=== PATIENT | female | born 1985 | race Caucasian/White ===

== ENCOUNTER 2016-12-17 15:57 | Emergency (ER) | payer BC, MEDICAID ==
[~2016-12-17] VITALS: Ht 165.1 cm; Wt 83.5 kg
[~2016-12-17 15:57] MED LIST: HYDR-3584 PO; L-NO1TBD3 PO; LAMO100T PO; NAPR500T3 PO; OMEP40CA36 PO
--- OUTSIDE RECORDS SUMMARY | 2016-12-17 16:04 | XMS REPORT | Continuity of Care Document ---
Author Author [facility] Organization [facility] Address Unknown Phone Unavailable Care Team Providers Care Corrugated Sheet Material Sheeter Name Role Phone Unknown, Unknown PCP Unavailable Source Comments Some departments are not documenting in the electronic medical record. If you do not see the information that you expected, contact Release of Information in the Health Information Management department at [phone] for further assistance in locating additional records.[facility] Active Allergies and Adverse Reactions Not on File Current Medications Not on file Active Problems Not on file Most Recent Encounters Date Type Specialty Providers Description 10/09/2016 [facility] Parker Cerna MD Encounter Social History Tobacco Use Types Packs/Day Years Used Date Never Assessed Last Filed Vital Signs Vital Sign Reading Time Taken Blood Pressure - - Pulse - - Temperature - - Respiratory Rate - - Height 1.676 m (5' 6") 04/08/2016 2:15 PM CDT Weight 83.915 kg (185 lb) 04/08/2016 2:15 PM CDT Body Mass Index 29.87 04/08/2016 2:15 PM CDT Oxygen Saturation - - Plan of Care Health Maintenance Due Date Last Done Comments Physical (Comprehensive) 1994 Exam Pertussis Vaccine 1998 Tetanus Vaccine 2004 Cervical Cancer Screening 2008 Influenza Vaccine 06/12/2016 Results from Last 3 Months Not on file
[2016-12-17] MEDS ORDERED: BUSP10TA95 (16:35)
--- NOTE | 2016-12-17 16:57 | ED EENT ---
History of Present Illness General Chief Complaint: General Problems/Pain Stated Complaint: FACIAL SWELLING Nursing Triage Note: AMB TO ED WITH SISTER. PATIENT SPECIAL NEEDS CHILD. REPORTS SUN STARTED C/O PAIN IN HER NECK AND JAW WITH SWELLING. SAW DR ZUNIGA IN OFFICE YESTERDAY WAS TOLD IT WAS VIRUS, AND TO COME TO ER IF ANY CONCERNS . HERE BECAUSE CON'T HAVE NECK PAIN. ALSO REPORTS SISTER HAS THE SAME THING. Source: patient, family Exam Limitations: no limitations History of Present Illness Time seen by provider: 16:57 Initial Comments 31-year-old female patient presents to the emergency department with concerns of having mumps. Patient is employed at [employer]. Patient states Thursday she started to have pain in the left parotid region with swelling yesterday. Swelling worse today and now involves the rt parotid gland. Reports mild headache, body aches, and low grade fever. Reports her sister has similar symptoms. Patient states her and because of her sisters were vaccinated. Also states the 2 older children of her sister's are vaccinated and a 10 month old that is not vaccinated. Timing/Duration: gradual Location: facial Prearrival Treatment: over the counter meds (last dose of ibuprofen was yesterday) Modifying Factors: Worse With Other (worse with palpation) Allergies and Home Medications Allergies Coded Allergies: NKANo Known Allergies (Verified Allergy, Unknown, 01/16/06) Home Medications Buspirone HCl 10 Mg Tablet #60 (Reported) Lamotrigine 100 Mg Tablet #60 100 MG PO BID (Reported) Naproxen 500 Mg Tablet #60 500 MG PO BID PRN PRN PAIN (Reported) Omeprazole 40 Mg Capsule. #30 40 MG PO DAILY (Reported) Ondansetron 8 Mg Tab.rapdis #10 8 MG PO Q6H PRN PRN NAUSEA Prescribed by: ANDRÉS RODRIGEZ on 12/17/161953 Tramadol HCl 50 Mg Tablet #20 50 MG PO Q4H PRN PRN PAIN Prescribed by: ANDRÉS RODRIGEZ on 12/17/162022 y-Yewbwmu-Esa Estr/Ethin Estra 1 Each Tbdspk.3mo #91 1 TAB PO DAILY (Reported) Review of Systems Constitutional: see HPI chills fever malaise Eyes: No Symptoms Reported Ears: Denies Dizziness, Pain (left ear pain)Denies Tinnitus, Denies Other ( denies discharge.) Nose: denies congestion, denies pain Mouth: see HPI pain (left jaw greater than right jaw) swelling (swelling of the bilateral parotid.) Throat: see HPI pain swellingdenies neck stiffness, denies hoarse, denies aphonia, denies muffled, denies painful swallowing, denies difficulty with fluids Respiratory: no symptoms reported Cardiovascular: no symptoms reported Gastrointestinal: no symptoms reported Musculoskeletal: no symptoms reported Skin: no symptoms reported Neurological: HeadacheDenies Numbness, Denies Paresthesia, Denies Tingling, Denies Weakness Immunological/Allergic: no symptoms reported All Other Systems Reviewed Negative Unless Noted: Yes (Negative excepted noted.) Past Anppiwn-Llkzag-Yjsuwl Hx Patient Social History Alcohol Use: Denies Use Recreational Drug Use: No Smoking Status: Never a Smoker Recent Foreign Travel: No Contact w/Someone Who Travel: No Recent Infectious Disease Expo: No Recent Hopitalizations: No Immunizations Up To Date Date of Influenza Vaccine: Sep 12, 2016 Seasonal Allergies Seasonal Allergies: Yes Surgeries HX Surgeries: Yes (BILAT HIP SURGERY) Surgeries: Orthopedic Respiratory Hx Respiratory Disorders: No Cardiovascular Hx Cardiac Disorders: No Neurological Hx Neurological Disorders: Yes (R/T VIRUS AT ) Neurological Disorders: Cerebral Palsy, Seizure Disorder Gastrointestinal Hx Gastrointestinal Disorders: Yes (ABD PAIN) Musculoskeletal Hx Musculoskeletal Disorders: No Endocrine Hx Endocrine Disorders: No Psychosocial Hx Psychiatric Problems: Yes Behavioral Health Disorders: Personality Disorder Reviewed Nursing Assessment Reviewed/Agree w Nursing PMH: Yes Family Medical History Significant Family History: No Pertinent Family Hx Physical Exam Vital Signs General Appearance: WD/WN no apparent distress Eyes: bilateral eye EOMI, bilateral eye PERRL, bilateral eye normal inspection Ears: bilateral ear TM normal, bilateral ear auricle normal, bilateral ear canal normal Nose: normal inspection Mouth/Throat: pharynx normalNo tonsillar exudate, No tonsillar swelling, No trismus, No uvula swelling, No voice changes, other ((+) pharyngeal erythema. Positive swelling of the bilateral parotid glands with left greater than right. Tenderness to palpation overlying the parotid glands.) Neck: full range of motion supple lymphadenopathy (R) (anterior cervical lymphadenopathy. Tender to palpation.) lymphadenopathy (L) (anterior cervical lymphadenopathy. Tender to palpation.) Cardiovascular: normal peripheral pulses regular rate, rhythm no murmur Respiratory: lungs clear normal breath sounds no respiratory distress Gastrointestinal: normal bowel sounds non tender softNo distended Neurologic/Psychiatric: alert normal mood/affect oriented x 3 Skin: normal color warm/dry Progress/Results/Core Measures Results/Orders Lab Results My Orders Orders-ANDRÉS RODRIGEZ [employer]st Ed (12/17/16 ) Medications Given in ED Vital Signs/I&O Blood Pressure Mean: 102 Departure Communication Progress Notes Patient seen and evaluated. Patient was negative for influenza A and Streptococcus tonsillitis. The [facility] was contacted by ED staff with recommendations for proceeding with mumps testing. Specimen was obtained. Patient instructed to isolate herself at home until she has contacted by [facility] or the [facility]. Results should be completed on Thursday. Patient family also advised to have the sister with similar symptoms isolate herself as well. Patient reports feeling better after medications. Proceed with discharge to home. All return precautions were discussed with the patient as described in the discharge instructions of this report. Patient voices understanding and agrees with the treatment plan. Impression Impression: Primary Impression: Mumps parotitis Disposition: HOME, SELF-CARE Condition: Improved Departure-Patient Inst. Decision time for Depature: 19:53 Referrals: NO,LOCAL PHYSICIAN (PCP/Family) Primary Care Physician Patient Instructions: Mumps (DC) Add. Discharge Instructions: All discharge instructions reviewed with patient and/or family. Voiced understanding. Medications as instructed. Tylenol extra strength over-the- counter as directed for pain or fever. Ibuprofen 800 mg by mouth every 8 hours as needed for pain, headache, fever. Drink plenty of fluids. Rest. Isolate yourself or 5 days from yesterday. Follow-up with the family practitioner next week for recheck, call first thing tomorrow morning for appointment time. Diet as tolerated. Return to the emergency department for worsened pain, fever, dizziness, healthy swelling, difficulty breathing, swelling of the face, swelling of the throat, decreased urination, vomiting, or any other concerns. Scripts Tramadol HCl 50 Mg [id number] Mg PO Q4H PRN PAIN #20 TAB Ref 0 Prov:ANDRÉS RODRIGEZ 12/17/16 Ondansetron (Ondansetron Odt)8 Mg Tab.rapdis8 Mg PO Q6H PRN NAUSEA #10 TAB Ref 0 Prov:ANDRÉS RODRIGEZ 12/17/16 Work/School Note: Local Medical Staff Listing, Work Release Form Date Seen in the Emergency Department: Dec 17, 2016 Return to Work: Dec 24, 2016 Restrictions: Need Release from Doctor ANDRÉS RODRIGEZ Dec 17, 2016 16:57 Red Blood Count 4.51 4.35-5.85 10^6/uL Red Cell Distribution Width 13.0 10.0-14.5 % Sodium Level 140 135-145 MMOL/L Total Bilirubin 0.3 0.1-1.0 MG/DL Total Protein 6.9 6.4-8.2 G/DL White Blood Count 5.9 4.3-11.0 10^3/uL My Orders Orders-ANDRÉS RODRIGEZ Cbc With Automated Diff (12/17/16 17:14) Comprehensive Metabolic Panel (12/17/16 17:14) Monotest (12/17/16 17:14) Rapid Strep A Screen (12/17/16 17:14) Ketorolac Injection (Toradol Injection) (12/17/16 17:14) Saline Lock/Iv-Start (12/17/16 17:14) Ns Iv 1000 Ml (Sodium Chloride 0.9%) (12/17/16 17:14) Influenza A And B Antigens (12/17/16 17:28) Medications Given in ED Current Medications Medications Dose Ordered Sig/Magdalena Route Start Time Stop Time Status Last Admin Dose Admin Sodium Chloride 1,000 ml @ 0 mls/hr Q0M ONCE IV 12/17/16 17:14 12/17/16 17:18 DC 12/17/16 17:37 1,000 MLS/HR Vital Signs/I&O Vital Sign - Last 12Hours 12/17/16 16:25 Temp 99.6 Pulse 84 Resp 18 B/P 128/89 Pulse Ox 98 Blood Pressure Mean: 102 Departure Impression Impression: Primary Impression: Mumps parotitis Disposition: 01 HOME, SELF-CARE Condition: Improved Departure-Patient Inst. Decision time for Depature: 19:53 Referrals: NO,LOCAL PHYSICIAN (PCP/Family) Primary Care Physician Patient Instructions: Mumps (DC) Add. Discharge Instructions: All discharge instructions reviewed with patient and/or family. Voiced understanding. Medications as instructed. Tylenol extra strength over-the- counter as directed for pain or fever. Ibuprofen 800 mg by mouth every 8 hours as needed for pain, headache, fever. Drink plenty of fluids. Rest. Isolate yourself or 5 days from yesterday. Follow-up with the family practitioner next week for recheck, call first thing tomorrow morning for appointment time. Diet as tolerated. Return to the emergency department for worsened pain, fever, dizziness, healthy swelling, difficulty breathing, swelling of the face, swelling of the throat, decreased urination, vomiting, or any other concerns. Scripts Ondansetron (Ondansetron Odt)8 Mg Tab.rapdis8 Mg PO Q6H PRN NAUSEA #10 TAB Ref 0 Prov:ANDRÉS RODRIGEZ 12/17/16 Work/School Note: Local Medical Staff Listing, Work Release Form Date Seen in the Emergency Department: Dec 17, 2016 Return to Work: Dec 24, 2016 Restrictions: Need Release from Doctor ANDRÉS RODRIGEZ Dec 17, 2016 16:57
[2016-12-17] MEDS ORDERED: KETOROLAC 30 MG/ML VIAL IVP STA (17:14)
[2016-12-17] MEDS ORDERED: NS IV 1000 ML 1,000 ML IV ONE (17:14)
[2016-12-17 17:42] LABS: BASOPHILS % (AUTO) 1 % (0-10); EOSINOPHILS # (AUTO) 0.1 10^3/uL (0.0-0.3); EOSINOPHILS % (AUTO) 1 % (0-10); LYMPHOCYTES # (AUTO) 2.3 X 10^3 (1.0-4.0); LYMPHOCYTES % (AUTO) 39 % (12-44); MEAN CORPUSCULAR HEMOGLOBIN 31 PG (25-34); MEAN CORPUSCULAR HGB CONC 34 G/DL (32-36); MEAN CORPUSCULAR VOLUME 90 FL (80-99); MEAN PLATELET VOLUME 11.2 FL (7.4-10.4); MONOCYTES # (AUTO) 0.7 X 10^3 (0.0-1.0); MONOCYTES % (AUTO) 12 % (0-12); NEUTROPHILS # (AUTO) 2.8 X 10^3 (1.8-7.8); NEUTROPHILS % (AUTO) 48 % (42-75); PLATELET COUNT 191 10^3/uL (130-400); RED BLOOD COUNT 4.51 10^6/uL (4.35-5.85); WHITE BLOOD COUNT 5.9 10^3/uL (4.3-11.0)
[2016-12-17 18:06] LABS: ALANINE AMINOTRANSFERASE 21 U/L (0-55); ALBUMIN 4.2 G/DL (3.2-4.5); ANION GAP 9 MMOL/L (5-14); ASPARTATE AMINO TRANSFERASE 24 U/L (5-34); BILIRUBIN,TOTAL 0.3 MG/DL (0.1-1.0); BLOOD UREA NITROGEN 12 MG/DL (7-18); BUN/CREATININE RATIO 15; CARBON DIOXIDE 24 MMOL/L (21-32); CHLORIDE 107 MMOL/L (98-107); GFR ESTIMATED > 60; GLUCOSE 85 MG/DL (70-105); POTASSIUM 3.6 MMOL/L (3.6-5.0); SODIUM 140 MMOL/L (135-145); TOTAL PROTEIN 6.9 G/DL (6.4-8.2)
[2016-12-17] MEDS ORDERED: ONDA8TAB13 PO (19:54)
[2016-12-17 20:20] VITALS: BP 118/90
[2016-12-17] MEDS ORDERED: TRAM50TA2 PO (20:23)
[2016-12-22 08:38] LABS: IGM MUMPS ANTIBODY <1:10 (<1:10)
== END 2016-12-17 20:20 | disposition home or self-care (01) ==
LOC: EDUNIT# 15:57 → ER 15:59
DX: B26.9 Mumps without complication (principal); G80.9 Cerebral palsy, unspecified
CPT/HCPCS: 36415; 80053; 85025; 86308; 86735; 87205; 87430; 87798; 87804; 96361; 96374

== ENCOUNTER → 2019-03-11 | Outpatient (CLI) | payer BC, MEDICAID ==
[~2019-03-11] MED LIST changes: +BUSP10TA95; +NAPR-915 PO; -NAPR500T3 PO; +ONDA8TAB13 PO; +TRAM50TA2 PO
--- NOTE | 2019-03-11 18:08 | Diagnostic Imaging Report ---
PROCEDURE: US right lower extremity venous. TECHNIQUE: Multiple real-time grayscale images were obtained over the right lower extremity in various projections. Additional spectral analysis and color Doppler duplex images were also obtained. INDICATION: Right knee edema. FINDINGS: There is no evidence of right lower extremity DVT. Right lower extremity deep venous system shows normal compressibility with normal response to augmentation and Valsalva. No fluid collection or mass is seen. IMPRESSION: No evidence of right lower extremity DVT. Dictated by: Dictated on workstation # [id number]
--- NOTE | 2019-03-11 19:03 | Diagnostic Imaging Report ---
EXAMINATION: Right knee at 12:09 p.m. INDICATION: Knee pain. FINDINGS: Three views were obtained. There are no prior studies available for comparison. There is no fracture, dislocation, or acute bony abnormality evident. The knee joint is well maintained. The soft tissues are unremarkable. IMPRESSION: 1. There is no evidence for an acute bony abnormality. 2. If there is clinical concern regarding internal derangement, then MRI will be recommended for further evaluation. Dictated by: Dictated on workstation # [id number]
== END ==
LOC: RAD 10:38
PROVIDERS: ATTEND Nurse Practitioner Family
DX: R60.0 Localized edema (principal)
CPT/HCPCS: 73562

== ENCOUNTER → 2020-08-15 | Outpatient (CLI) | payer MEDICAID ==
[~2020-08-15] MED LIST changes: -LAMO100T PO; +LAMO100T5 PO; +OMEP40CA27 PO; -OMEP40CA36 PO; -TRAM50TA2 PO; +TRM50T PO
--- NOTE | 2020-08-15 13:35 | Diagnostic Imaging Report ---
INDICATION: Fever and cough. TIME OF EXAM: 12:29 p.m. COMPARISON: No prior studies are available for comparison. FINDINGS: Heart size is normal. There is minimal patchy infiltrate in the right base. Otherwise, the lungs are clear. No effusion is detected. There is no pneumothorax. IMPRESSION: Minimal patchy right basilar infiltrate. Dictated by: Dictated on workstation # [id number]
== END ==
LOC: RAD 12:09
PROVIDERS: ATTEND Family Medicine
DX: R50.9 Fever, unspecified (principal); R05 Cough; Z20.828 Contact with and (suspected) exposure to other viral communicable diseases
CPT/HCPCS: 71046

== ENCOUNTER → 2021-06-04 | Outpatient (CLI) | payer MEDICARE, MEDICAID ==
[~2021-06-04] MED LIST changes: -OMEP40CA27 PO; +OMEP40CA6 PO
== END ==
LOC: WOUNDCARE 09:08
PROVIDERS: ATTEND Surgery
DX: L98.492 Non-pressure chronic ulcer of skin of other sites with fat layer exposed (principal); I96 Gangrene, not elsewhere classified; E66.01 Morbid (severe) obesity due to excess calories; Z68.32 Body mass index [BMI] 32.0-32.9, adult
CPT/HCPCS: A6197; G0463; 99213

== ENCOUNTER → 2021-06-11 | Outpatient (CLI) | payer MEDICARE, MEDICAID | LOC: WOUNDCARE 10:40 | PROVIDERS: ATTEND Surgery | DX: L98.492 Non-pressure chronic ulcer of skin of other sites with fat layer exposed (principal); E66.01 Morbid (severe) obesity due to excess calories | CPT/HCPCS: 99212 ==

== ENCOUNTER 2023-08-05 17:31 | Emergency (ER) | payer MEDICARE, MEDICAID ==
[~2023-08-05] VITALS: Ht 170.1 cm; Wt 86.2 kg
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
--- NOTE | 2023-08-05 18:53 | Diagnostic Imaging Report ---
PROCEDURE: CT head, face, and cervical spine without contrast. TECHNIQUE: Multiple contiguous axial images were obtained through the head, neck, and facial bones without the use of intravenous contrast. Sagittal and coronal reformations through the cervical spine and facial bones were also performed. Auto Exposure Controls were utilized during the CT exam to meet ALARA standards for radiation dose reduction. INDICATION: Fall with injuries to head, face and cervical spine. CT HEAD: There is asymmetric enlargement of the right lateral ventricle. There is diffuse thinning of corpus callosum. There is however no evidence of acute hemorrhage. There is no abnormal mass effect or shift of midline structures. Calvarium is intact and visualized paranasal sinuses are clear. IMPRESSION: No acute intracranial abnormality identified. 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 MAXILLOFACIAL CT: Globes are intact. Temporomandibular joints are unremarkable. Zygomatic arches are unremarkable. There is rightward deviation of nasal septum. No air-fluid level is identified. IMPRESSION: No evidence of acute maxillofacial abnormality. CT CERVICAL SPINE: There is straightening of normal cervical lordosis. There is mild disc space narrowing at the C5-C6 level with endplate spurring. No acute fracture is seen. Note is made of chronic, nondisplaced fracture involving the left posterior arch of C1. IMPRESSION: Old left C1 fracture without acute abnormality seen in the cervical spine. Dictated by: Dictated on workstation # [id number]
[2023-08-05 19:28] VITALS: BP 117/96
[2023-08-05] MEDS ORDERED: ACETAMINOPHEN 500 MG TABLET PO ONE (19:30)
== END 2023-08-05 19:28 | disposition home or self-care (01) ==
LOC: EDUNIT# 17:31 → ER 17:35
DX: S13.9XXA Sprain of joints and ligaments of unspecified parts of neck, initial encounter (principal); S40.212A Abrasion of left shoulder, initial encounter; S00.83XA Contusion of other part of head, initial encounter; S20.219A Contusion of unspecified front wall of thorax, initial encounter; R10.84 Generalized abdominal pain; Y04.0XXA Assault by unarmed brawl or fight, initial encounter
CPT/HCPCS: 70450; 70486; 72125; 99283